=== PATIENT | male | born 1990 | race Caucasian/White ===

== ENCOUNTER 2020-04-05 09:20 | Day surgery (SDC) | payer BC ==
[~2020-04-05] VITALS: Ht 182.9 cm; Wt 74.8 kg
[2020-04-05 09:49] VITALS: BP 125/85; Ht 182.9 cm; Wt 74.8 kg
--- NOTE | 2020-04-05 10:59 | NUR ---
1050 STATES BLOCK IS EFFECTIVE, VERBALL, DENIES PROBLEMS. MONITORING CONTINUES. ROOM AIR.
--- NOTE | 2020-04-05 11:34 | NUR ---
1120 VERBAL, WIGGLES FINGERS, CANNOT MOVE ARM, NO PROBLEMS.
--- NOTE | 2020-04-05 12:01 | NUR ---
1200 STATES FEELING LIKE AN OCCATIONAL WAVE OF NAUSEA, NO EMESIS.
--- NOTE | 2020-04-05 13:18 | NUR ---
1318 TO OR BY STRETCHER.
[2020-04-05] MEDS ORDERED: PERCOCET 10-321 EAC1 PO (14:15)
--- NOTE | 2020-04-07 08:27 | OP ---
PATIENT NAME: RONNIE SALAZAR MEDICAL RECORD: [id number] :89 LOCATION:D.OPS ADMISSION DATE: SURGEON: VIKRAM HOUSTON MD DATE OF OPERATION: 04/05/2020 PREOPERATIVE DIAGNOSIS: Acute AC separation, grade III. POSTOPERATIVE DIAGNOSIS: Acute AC separation, grade III. PROCEDURE: Left shoulder AC joint reconstruction. SURGEON: Vikram Houston MD PATHOLOGY COLLECTOR: CHICA Bliss INTRAOPERATIVE COMPLICATIONS: None. SUMMARY OF PATHOLOGIC FINDINGS: The patient did have fresh tissue, requiring straightforward AC reconstruction without I thought the need for graft. IMPLANTS USED: Double dog bones by [employer]. OPERATIVE SUMMARY IN DETAIL: After obtaining the appropriate preoperative orthopaedic surgery consent as well as anesthetic consultation, evaluation, and clearance, the patient was brought to the operating room and placed on the operating table in the supine position. After adequate general laryngeal mask airway was administered, the patient was placed in beach chair position. All pressure points were well padded. He was held firmly on the operating table using the Vac-Pac suction system. Modified incision was made from the clavicle to the tip of the coracoid. Incision was taken down and then gentle muscle dissection was carried down to the actual clavicle and the coracoid tip itself. With direct visualization of the tip of the coracoid, the nitinol passing drill was passed bicortically through the greater curvature of the coracoid itself. Nitinol was then passed through the passing wire. Having completed this, the nitinol passing wire was then reassembled and used to pass the wire likewise through the clavicle. At this point, the previously loaded dog bone with the FiberTape was securely placed in the inferior curve of the coracoid and then pulled through the superior aspect of the clavicle. A large reduction clamp was utilized to hold the coracoclavicular ligament distance in place while the dog bone was tied over the top of the clavicle. Having completed this, the wound was copiously irrigated and a multilayer closure was done by CHICA Bliss, to include #1 Vicryl, 2-0 Vicryl, and skin cherelle. Sterile dressings were applied. The patient was awakened and taken to the recovery room in stable condition. All final needle and sponge counts were correct. [id number] Voice Confirmation ID: [id number] DOCUMENT ID: [id number] OPERATIVE REPORT [id number] RONNIE SALAZAR MD, VIKRAM SCHWAB at 0827 CC: [id number] DICTATION DATE: 04/06/20 1649 FAGOTING MACHINE OPERATOR: 04/07/20 0218 [facility] 04/05/20 [facility] [address] [place] [address]
== END 2020-04-05 16:00 | disposition home or self-care (01) ==
LOC: D.OPS 09:20 → D.PAN 14:15 → D.OPS 16:00 → D.PAN 16:30 → D.OPS 16:30 → D.PAN 17:15
PROVIDERS: ATTEND Orthopaedic Surgery
DX: S43.102A Unspecified dislocation of left acromioclavicular joint, initial encounter (principal); X58.XXXA Exposure to other specified factors, initial encounter